=== PATIENT | male | born 1980 | race Two or more races ===

== ENCOUNTER 2017-04-10 21:44 | Emergency (ER) | payer MEDICAID ==
[~2017-04-10] VITALS: Ht 162.6 cm; Wt 59.0 kg
[2017-04-10] MEDS ORDERED: MAGNESIUM/ALUMINUM HYDROXIDE/SIMETHICONE 30ML UDC PO STA (22:27)
[2017-04-10] MEDS ORDERED: KETOROLAC 60MG/2ML VIAL IM STA (22:27)
[2017-04-10] MEDS ORDERED: VISCOUS LIDOCAINE 2% 15 ML UDC PO STA (22:27)
[2017-04-10 22:45] LABS: BASOPHILS % 0.3 % (0.0-2.0); EOSINOPHILS % 12.1 % (0.0-5.0); HEMATOCRIT. 37.3 % (42.0-52.0); HEMOGLOBIN. 12.6 g/dL (14.0-18.0); LYMPHOCYTES % 26.6 % (20.0-50.0); MEAN CORPUSCULAR HEMOGLOBIN 31.5 pg (28.0-32.0); MEAN CORPUSCULAR VOLUME 93.1 fL (80.0-94.0); MEAN PLATELET VOLUME 8.8 fl (7.4-10.4); MONOCYTES % 7.8 % (2.0-8.0); NEUTROPHILS % 53.2 % (40.0-76.0); PLATELET 249 x1000/uL (130-400); RED CELL DISTRIBUTION WIDTH 13.9 % (11.6-14.6)
[2017-04-10 22:46] LABS: CHLORIDE 109 mEq/L (98-107)
[2017-04-10 22:54] LABS: CARBON DIOXIDE 23 mEq/L (21-32)
[2017-04-10 22:55] LABS: CLARITY URINE CLEAR (CLEAR); COLOR URINE DARK YELLOW (YELLOW); GLUCOSE URINE NEGATIVE (NEGATIVE); KETONES URINE TRACE (NEGATIVE); LEUKOCYTE ESTERASE URINE NEGATIVE (NEGATIVE); NITRITE URINE NEGATIVE (NEGATIVE); OCCULT BLOOD URINE NEGATIVE (NEGATIVE); PH URINE 5.5 (4.5-8.0); PROTEIN URINE TRACE (NEGATIVE); SPECIFIC GRAVITY URINE 1.035 (1.005-1.030)
[2017-04-11 05:30] VITALS: BP 101/58
== END 2017-04-11 11:20 | disposition home or self-care (01) ==
LOC: ER 21:58
DX: R10.13 Epigastric pain (principal); Z59.0 Homelessness
CPT/HCPCS: 36415; 80053; 81001; 83690; 85025; 96372; 99284; J1885; Z7610